=== PATIENT | female | born 1960 | race Asian ===

== ENCOUNTER 2018-12-30 18:13 | Emergency (ER) | payer BC ==
[~2018-12-30] VITALS: Ht 172.7 cm; Wt 62.1 kg
== END 2018-12-30 20:05 | disposition home or self-care (01) ==
LOC: ER 18:13
DX: H11.422 Conjunctival edema, left eye (principal); Z88.2 Allergy status to sulfonamides
CPT/HCPCS: 99282

== ENCOUNTER → 2019-06-17 | Outpatient (CLI) | payer BC | END | disposition home or self-care (01) | LOC: LAB SHORT 19:36 → LAB 19:36 | DX: R31.9 Hematuria, unspecified (principal) | CPT/HCPCS: 87086 ==

== ENCOUNTER → 2019-09-18 | Outpatient (CLI) | payer BC | END | disposition home or self-care (01) | LOC: LAB 15:58 → LAB SHORT 15:58 | DX: N39.0 Urinary tract infection, site not specified (principal) | CPT/HCPCS: 87086 ==

== ENCOUNTER → 2024-04-03 | Outpatient (CLI) | payer BC | LOC: EDSTATUS 08:01 → LAB SHORT 15:55 | DX: N39.0 Urinary tract infection, site not specified (principal) | CPT/HCPCS: 87086 ==